=== PATIENT | female | born 1950 | race Caucasian/White ===

== ENCOUNTER 2018-06-11 08:23 | Inpatient (IN) | payer OTHER ==
[~2018-06-11 08:23] MED LIST: CEFAZOLIN 1 GM INJ; METOCLOPRAMIDE 10 MG INJ; SEVOFLURANE 15 MIN
[2018-06-11] MEDS ORDERED: morphine SULFATE/PF (10 MG/10 ML) INJ (09:58)
[2018-06-11] MEDS ORDERED: FENTAnyl 50 MCG/ML VIAL (09:59)
[2018-06-11] MEDS ORDERED: MIDAZOLAM 1 MG/ML 2 ML INJ (09:59)
[2018-06-11] MEDS ORDERED: ONDANSETRON 4 MG INJ (10:02)
[2018-06-11] MEDS ORDERED: PROPOFOL 20 ML (10:05)
[2018-06-11] MEDS ORDERED: LIDOCAINE 2% (SDV) 5 ML INJ (10:06)
[2018-06-11] MEDS ORDERED: ROCURONIUM 50 MG INJ (10:06)
[2018-06-11] MEDS ORDERED: SUCCINYLCHOLINE CHLORIDE 100 MG/5 ML SYG IV (10:06)
[2018-06-11] MEDS ORDERED: POLYMYXIN/BACITRACIN 1L IRRIG (10:27)
[2018-06-11] MEDS ORDERED: THROMBIN (BOVINE) 5,000 UNIT VIAL TP (10:27)
[2018-06-11] MEDS ORDERED: IPRATROPIUM (NEB) 0.5 MG/2.5 ML AMP HHN (10:30)
[2018-06-11] MEDS ORDERED: HYDROmorphONE 1 MG/5 ML IV SYRINGE IV ×2 (10:30)
[2018-06-11] MEDS ORDERED: DIPHENHYDRAMINE 50 MG INJ IV (10:30)
[2018-06-11] MEDS ORDERED: LEVALBUTEROL (NEB) 1.25 MG/0.5 ML AMP HHN (10:30)
[2018-06-11] MEDS ORDERED: MIDAZOLAM 1 MG/ML 2 ML INJ IV (10:30)
[2018-06-11] MEDS ORDERED: KETOROLAC 30 MG INJ IV (10:30)
[2018-06-11] MEDS ORDERED: hydrALAzine 20 MG INJ IV (10:30)
[2018-06-11] MEDS ORDERED: LORAZEPAM 2 MG INJ IV (10:30)
[2018-06-11] MEDS ORDERED: LABETALOL HCL 20MG INJ IV (10:30)
[2018-06-11] MEDS ORDERED: FENTAnyl 50 MCG/ML VIAL IV ×2 (10:30)
[2018-06-11] MEDS ORDERED: ONDANSETRON 4 MG INJ IV (10:30)
[2018-06-11] MEDS ORDERED: MEPERIDINE 25 MG INJ IV (10:30)
[2018-06-11] MEDS: BUPIVACAINE 0.5%/EPI (SDV) 30 ML INJ (11:35)
[2018-06-11] MEDS: POLYMYXIN/BACITRACIN 1L IRRIG IRR (12:26)
[2018-06-11] MEDS ORDERED: ONDANSETRON INJ 6 MG in DEXTROSE 5% 50 ML IVPB (13:00)
[2018-06-11] MEDS ORDERED: ZOLPIDEM 5 MG TAB PO (13:00)
[2018-06-11] MEDS ORDERED: DIPHENHYDRAMINE 50 MG CAP PO (13:00)
[2018-06-11] MEDS ORDERED: HYDROCODONE/APAP (5/325) TAB PO ×2 (13:00)
[2018-06-11] MEDS ORDERED: CEFAZOLIN 1 GM/50 ML (PMX) 50 ML IVPB (14:00)
[2018-06-11] MEDS ORDERED: DEXTROSE 50% 50 ML SYRINGE IV ×2 (14:30)
[2018-06-11] MEDS ORDERED: GLUCAGON 1 MG INJ IM (14:30)
[2018-06-11] MEDS ORDERED: GLUCOSE GEL 15 GRAM TUBE PO ×2 (14:30)
[2018-06-11] MEDS ORDERED: GLUCOSE GEL 15 GRAM TUBE BUCCAL (14:30)
[2018-06-11] MEDS: LACTATED RINGER'S 1,000 ML IV ×3 (15:39→23:50)
[2018-06-11] MEDS: KETOROLAC 15 MG INJ IV ×2 (15:41→21:23)
[2018-06-11] MEDS: LINAGLIPTIN 5 MG TABLET PO (15:49)
[2018-06-11] MEDS: METOCLOPRAMIDE 10 MG TAB PO ×2 (17:22→23:50)
[2018-06-11] MEDS: ATORVASTATIN 10 MG TAB PO (20:31)
[2018-06-11] MEDS: CEFAZOLIN 1 GM/50 ML (PMX) 50 ML IVPB (20:31)
[2018-06-11] MEDS: ENOXAPARIN 30 MG/0.3 ML SYG SC (20:33)
[2018-06-11] MEDS: glipiZIDE 5 MG TAB PO (20:38)
[2018-06-11] MEDS ORDERED: ENOXAPARIN 30 MG/0.3 ML SYG SC (21:00)
[2018-06-12] MEDS: KETOROLAC 15 MG INJ IV ×4 (02:51→20:25)
[2018-06-12] MEDS: CEFAZOLIN 1 GM/50 ML (PMX) 50 ML IVPB ×3 (03:45→20:24)
[2018-06-12 06:24] LABS: ADD MAN DIFF? NO
[2018-06-12 06:28] LABS: WHITE BLOOD COUNT 14.1 10^3/ul (4.8-10.8)
[2018-06-12 06:28] LABS: BASOPHILS % 0.1 % (0.0-2.0); HEMATOCRIT 32.3 % (37.0-47.0); HEMOGLOBIN 10.3 g/dl (12.0-16.0); LYMPHOCYTES # 1.6 10^3/ul (0.8-2.9); LYMPHOCYTES % 11.4 % (15.0-51.0); MEAN CORPUSCULAR HEMOGLOBIN 30.1 pg (29.0-33.0); MEAN CORPUSCULAR HGB CONC 31.9 g/dl (32.0-37.0); MEAN CORPUSCULAR VOLUME 94.4 fl (82.0-101.0); MEAN PLATELET VOLUME 11.3 fl (7.4-10.4); MONOCYTE # 0.7 10^3/ul (0.3-0.9); MONOCYTES % 4.9 % (0.0-11.0); NEUTROPHIL # 11.7 10^3/ul (1.6-7.5); NEUTROPHILS % 83.2 % (39.0-77.0); PLATELET COUNT 236 10^3/UL (140-415); RED BLOOD COUNT 3.42 10^6/ul (4.20-5.40)
[2018-06-12] MEDS: METOCLOPRAMIDE 10 MG TAB PO ×3 (06:42→17:55)
[2018-06-12 07:10] LABS: ANION GAP 6 (5-13); BLOOD UREA NITROGEN 11 mg/dl (7-20); CARBON DIOXIDE 26 mmol/L (21-31); CHLORIDE 108 mmol/L (97-110); CREATININE 0.47 mg/dl (0.44-1.00); POTASSIUM 4.7 mmol/L (3.5-5.1); SODIUM 140 mmol/L (135-144)
[2018-06-12] MEDS: glipiZIDE 5 MG TAB PO ×2 (08:34→20:26)
[2018-06-12] MEDS: LINAGLIPTIN 5 MG TABLET PO (08:34)
[2018-06-12] MEDS: ENOXAPARIN 30 MG/0.3 ML SYG SC ×2 (08:35→20:36)
[2018-06-12] MEDS: LEVOTHYROXINE 75 MCG TAB PO (08:42)
[2018-06-12] MEDS: metFORMIN 500 MG TAB PO (08:42)
[2018-06-12] MEDS: LISINOPRIL 5 MG TAB PO (08:52)
[2018-06-12] MEDS: ATORVASTATIN 10 MG TAB PO (20:26)
== END 2018-06-12 21:55 | disposition home or self-care (01) | DRG 748 ==
LOC: 2NE 08:23 → PP2 14:53
PROVIDERS: Obstetrics & Gynecology
PROC: 0TSD0ZZ Reposition Urethra, Open Approach (ICD-10-PCS; principal; 2018-06-11 10:30)
PROC: 0JUC0JZ Supplement of Pelvic Region Subcutaneous Tissue and Fascia with Synthetic Substitute, Open Approach (ICD-10-PCS; 2018-06-11 10:30)
PROC: 0JQC0ZZ Repair Pelvic Region Subcutaneous Tissue and Fascia, Open Approach (ICD-10-PCS; 2018-06-11 10:30)
DX: N81.10 Cystocele, unspecified (principal); N81.6 Rectocele; N39.46 Mixed incontinence; K59.00 Constipation, unspecified; I10 Essential (primary) hypertension; E03.9 Hypothyroidism, unspecified; E11.9 Type 2 diabetes mellitus without complications; E66.9 Obesity, unspecified; E78.00 Pure hypercholesterolemia, unspecified; Z98.51 Tubal ligation status; Z79.84 Long term (current) use of oral hypoglycemic drugs; Z79.82 Long term (current) use of aspirin; Z90.710 Acquired absence of both cervix and uterus
CPT/HCPCS: 80051; 82565; 82962; 84520; 85025; 87086